=== PATIENT | male | born 1980 | race Caucasian/White ===

== ENCOUNTER 2017-11-03 15:01 | Emergency (ER) | payer OTHER ==
[2017-11-03 15:15] VITALS: BP 151/89
[2017-11-03] MEDS ORDERED: Diphtheria,Pertussis(Acell),Tetanus Vaccine 0.5 ML SDV IM ONE (15:36)
--- NOTE | 2017-11-03 15:39 | EDM.PDOC ---
ED HPI GENERAL MEDICAL PROBLEM - General Chief Complaint: Upper Extremity Injury/Pain Stated Complaint: NAIL IN LT THUMB Time Seen by Provider: 11/03/17 15:38 Source of Information: Reports: Patient History Limitations: Reports: No Limitations - History of Present Illness INITIAL COMMENTS - FREE TEXT/NARRATIVE: PT WAS WORKING WITH A NAILGUN AND PUT A NAIL THROUGH HIS RT THUMB. Duration: Hour(s): Location: Reports: Upper Extremity, Right Associated Symptoms: Reports: No Other Symptoms left thumb Pain Score (Numeric/FACES): 3 - Related Data Allergies Allergy/AdvReac Type Severity Reaction Status Date / Time No Known Allergies Allergy Verified 12/19/15 18:01 Home Meds: Home Meds NK [No Known Home Meds] 12/19/15 [History] Past Medical History Musculoskeletal History: Reports: Back Pain, Chronic Psychiatric History: Reports: Depression - Infectious Disease History Infectious Disease History: Reports: Chicken Pox - Past Surgical History HEENT Surgical History: Reports: Oral Surgery Male Surgical History: Reports: Vasectomy Social & Family History - Tobacco Use Smoking Status *Q: Former Smoker Used Tobacco, but Quit: No - Caffeine Use Caffeine Use: Reports: Coffee, Soda - Recreational Drug Use Recreational Drug Use: No Review of Systems - Review of Systems Review Of Systems: See Below Eyes: Reports: No Symptoms Ears: Reports: No Symptoms Nose: Reports: No Symptoms Mouth/Throat: Reports: No Symptoms Respiratory: Reports: No Symptoms Cardiovascular: Reports: No Symptoms GI/Abdominal: Reports: No Symptoms Musculoskeletal: Reports: Other (PT PUT A NAIL THROUGH HIS RT THUMB. ) ED EXAM, GENERAL - Physical Exam Exam: See Below Free Text/Narrative:: pT HAS A NAIL THROUGH THE RT THUMB. Exam Limited By: No Limitations General Appearance: Alert Extremities: Other ( PT HAS A NAIL THROUGH THE RT THUMB. ) Course - Vital Signs Last Recorded V/S: Last Vital Signs Temp 36.6 C 11/03/17 15:29 Pulse 86 11/03/17 15:29 Resp 16 11/03/17 15:29 BP 151/89 H 11/03/17 15:29 Pulse Ox 97 11/03/17 15:29 - Orders/Labs/Meds Orders: Active Orders 24 hr Category Date Time Status Vaccines to be Administered [RC] PER UNIT ROUTINE Care 11/03/17 15:37 Active Fingers Thumb Lt FA [CR] Stat Exams 11/03/17 15:37 Taken Meds: Medications Discontinued Medications Generic Name Dose Route Start Last Admin Trade Name Freq PRN Reason Stop Dose Admin Hydrocodone Bitart/Acetaminophen 1 tab 11/03/17 15:43 11/03/17 15:48 [place] 325-5 Mg PO 11/03/17 15:44 1 tab ONETIME ONE Administration Bacitracin 1 dose 11/03/17 16:15 11/03/17 16:30 Bacitracin Oint 1 Gm TOP 11/03/17 16:16 1 dose ONETIME ONE Administration Diphtheria/Tetanus/Acell Pertussis 0.5 ml 11/03/17 15:36 11/03/17 15:50 Adacel IM 11/03/17 15:37 0.5 ml .ONCE ONE Administration - Re-Assessments/Exams Free Text/Narrative Re-Assessment/Exam: 11/03/17 16:18 tHe NAIL WAS GRADUALLY TURNED AND IT WAS REMOVED. a XRAY WAS OBTAINED WHICH SHOWed NO INJURY TO THE BONE. iT WAS SOAKED AND DRESSED WITH BACATRACIN 11/04/17 08:06 Departure - Departure Time of Disposition: 16:19 Disposition: Home, Self-Care 01 Condition: Fair Clinical Impression: Puncture wound - Discharge Information Instructions: Puncture Wound, [id number] Referrals: PCP,None [Primary Care Provider] - Forms: ED Department Discharge Care Plan Goals: SOAK BID, APPLY BACATRACIN, AUGMENTIN 875 BID, USE YOGURT OR PROBIOTIC WHILE ON THE ANTIBIOTIC, MOTRIN 600MG Q 6H PRN FOR PAIN. - My Orders Last 24 Hours: My Active Orders 11/03/17 15:37 Vaccines to be Administered [RC] PER UNIT ROUTINE Fingers Thumb Lt FA [CR] Stat - Assessment/Plan Last 24 Hours: My Active Orders 11/03/17 15:37 Vaccines to be Administered [RC] PER UNIT ROUTINE Fingers Thumb Lt FA [CR] Stat
[2017-11-03] MEDS ORDERED: Acetaminophen/HYDROcodone 325-5 MG Tab PO ONE (15:43)
[2017-11-03] MEDS ORDERED: Bacitracin Oint 1 GM U/D Packet TOP ONE (16:15)
--- NOTE | 2017-11-05 08:49 | CR ---
Fingers Thumb Lt FA HISTORY: nail went through mid portion of thumb. FINDINGS: No acute fracture or dislocation is identified. Bony architecture and joint spaces are preserved. S oft tissues are unremarkable. IMPRESSION: No acute left thumb abnormality identified.
== END 2017-11-03 16:35 | disposition home or self-care (01) ==
LOC: JP.ED 15:01
DX: S61.031A Puncture wound without foreign body of right thumb without damage to nail, initial encounter (principal); Z87.891 Personal history of nicotine dependence; W45.0XXA Nail entering through skin, initial encounter
CPT/HCPCS: 73140; 90471; 90715; 99284; A9270

== ENCOUNTER 2019-06-22 11:38 | Emergency (ER) | payer OTHER ==
[2019-06-22 13:27] VITALS: BP 125/85; PULSE 80
--- NOTE | 2019-06-22 13:36 | EDM.PDOC ---
ED HPI GENERAL MEDICAL PROBLEM - General Chief Complaint: Skin Complaint Stated Complaint: INFECTION ON RIGHT SHOULDER Time Seen by Provider: 06/22/19 12:48 Source of Information: Reports: Patient History Limitations: Reports: No Limitations - History of Present Illness INITIAL COMMENTS - FREE TEXT/NARRATIVE: CC: infection right shoulder Onset: couple of days Has a tattoo, keeps getting cellulitis to the right shoulder area Doesn't know if follicles are getting infected Hx of MRSA He denies fever, nausea, vomiting There is redness and discharge He has been trying to squeeze stuff out of it. Onset: Gradual Quality: Reports: Pressure Improves with: Reports: None Worsens with: Reports: None Right Upper Arm Pain Score (Numeric/FACES): 6 - Related Data Allergies Allergy/AdvReac Type Severity Reaction Status Date / Time Milk Containing Products Allergy Other Verified 06/22/19 13:28 Home Meds: Home Meds Naproxen [Naprosyn] 500 mg PO BID 09/20/18 [History] Multivitamin [Multi-Day Vitamins] 1 tab PO DAILY 09/24/18 [History] Bacitracin [Bacitracin Oint] 15 gm .XX TID #1 tube 06/22/19 [Rx] Past Medical History HEENT History: Reports: Impaired Vision Gastrointestinal History: Reports: Other (See Below) Other Gastrointestinal History: abdominal pain Musculoskeletal History: Reports: Back Pain, Chronic, Neck Pain, Chronic Neurological History: Reports: Concussion Psychiatric History: Reports: Anxiety, Depression - Infectious Disease History Infectious Disease History: Reports: Chicken Pox, MRSA - Past Surgical History HEENT Surgical History: Reports: Oral Surgery GI Surgical History: Reports: Colonoscopy Male Surgical History: Reports: Vasectomy Social & Family History - Family History Family Medical History: Noncontributory - Tobacco Use Smoking Status *Q: Never Smoker Second Hand Smoke Exposure: No - Caffeine Use Caffeine Use: Reports: Coffee, Soda - Recreational Drug Use Recreational Drug Use: No ED ROS GENERAL - Review of Systems Review Of Systems: See Below Constitutional: Reports: No Symptoms Respiratory: Reports: No Symptoms Cardiovascular: Reports: No Symptoms GI/Abdominal: Reports: No Symptoms Musculoskeletal: Reports: No Symptoms Skin: Reports: Erythema, Other (pus, warmpth) Neurological: Reports: No Symptoms Psychiatric: Reports: No Symptoms ED EXAM, SKIN/RASH Exam: See Below Exam Limited By: No Limitations General Appearance: Alert, WD/WN, No Apparent Distress Head: Atraumatic, Normocephalic Neck: Normal Inspection, Full Range of Motion Respiratory/Chest: Lungs Clear Cardiovascular: Regular Rate, Rhythm Extremities: Other (right humerus, redness, warmth; pus present) Psychiatric: Normal Affect, Normal Mood Skin: Warm, Dry, Tattoo(s) (right shoulder) Course - Vital Signs Last Recorded V/S: Last Vital Signs Temp 97.2 F 06/22/19 13:25 Pulse 80 06/22/19 13:25 Resp 16 06/22/19 13:25 BP 125/85 06/22/19 13:25 Pulse Ox 97 06/22/19 13:25 Departure - Departure Time of Disposition: 13:35 Disposition: Home, Self-Care 01 Condition: Good Clinical Impression: Multiple-resistant Staphylococcus aureus infection, Cellulitis - Discharge Information *PRESCRIPTION DRUG MONITORING PROGRAM REVIEWED*: Not Applicable *COPY OF PRESCRIPTION DRUG MONITORING REPORT IN PATIENT DALIA: Not Applicable Prescriptions: Bacitracin [Bacitracin Oint] 15 gm .XX TID #1 tube Instructions: Cellulitis, Adult Referrals: PCP,None [Primary Care Provider] - Forms: ED Department Discharge Additional Instructions: Keep site clean and dry Take antibiotics as directed Call with questions Follow up with your doctor this week Return with concerns.
== END 2019-06-22 14:01 | disposition home or self-care (01) ==
LOC: JP.ED 11:38
DX: L03.113 Cellulitis of right upper limb (principal); B95.62 Methicillin resistant Staphylococcus aureus infection as the cause of diseases classified elsewhere; Z91.011 Allergy to milk products; Z79.899 Other long term (current) drug therapy; Z98.52 Vasectomy status
CPT/HCPCS: 99283

== ENCOUNTER 2025-10-01 06:25 | Day surgery (SDC) | payer BC, OTHER ==
[2025-10-01] MEDS ORDERED: fentaNYL 50 MCG/ML SDV ONE (07:18)
[2025-10-01] MEDS ORDERED: Midazolam 1 MG/ML 2 ML SDV ONE (07:18)
[2025-10-01] MEDS: Lactated Ringers 1,000 ML IV SCH (07:18)
[2025-10-01] MEDS ORDERED: Propofol 200 MG/20 ML SDV ONE (07:19)
[2025-10-01 09:17] VITALS: BP 127/81; PULSE 79
== END 2025-10-01 09:30 | disposition home or self-care (01) ==
LOC: JP.SDS 06:25
PROVIDERS: ATTEND Surgery
DX: Z12.11 Encounter for screening for malignant neoplasm of colon (principal); K63.5 Polyp of colon; Z91.0110 Allergy to milk products, unspecified; Z79.899 Other long term (current) drug therapy; Z87.891 Personal history of nicotine dependence
CPT/HCPCS: 00811; 45380; J2250; J2704; J3010; J7120; 88305